=== PATIENT | male | born 1970 | race Caucasian/White ===

== ENCOUNTER → 2023-11-16 | Outpatient (CLI) | payer OTHER | LOC: MHCPAIN 07:49 | DX: M43.16 Spondylolisthesis, lumbar region (principal); M47.816 Spondylosis without myelopathy or radiculopathy, lumbar region; M51.26 Other intervertebral disc displacement, lumbar region; M48.061 Spinal stenosis, lumbar region without neurogenic claudication | CPT/HCPCS: G0463 ==

== ENCOUNTER → 2024-01-04 | Outpatient (CLI) | payer OTHER | LOC: MHCPAIN 10:27 | DX: M47.22 Other spondylosis with radiculopathy, cervical region (principal); M43.17 Spondylolisthesis, lumbosacral region; M51.16 Intervertebral disc disorders with radiculopathy, lumbar region; E78.5 Hyperlipidemia, unspecified | CPT/HCPCS: G0463 ==